=== PATIENT | male | born 1985 | race Hispanic/Latino ===

== ENCOUNTER 2024-05-31 08:21 | Emergency (ER) | payer BC ==
[2024-05-31] MEDS ORDERED: KETOROLAC 30 MG/ML INJ ONE (09:15)
--- NOTE | 2024-05-31 09:53 | RAD REPORT ---
EXAM DESCRIPTION: RAD - Knee Left 3 View - 05/31/2024 9:47 am CLINICAL HISTORY: PAIN COMPARISON: No comparisons FINDINGS: No bone or joint abnormality is seen.
--- NOTE | 2024-05-31 10:33 | EDPHYS ---
Physician Documentation [facility] Name: Chaz Peres Age: 39 yrs Sex: Male : 1985 Arrival Date: 05/31/2024 Time: 08:21 Bed 12 Private MD: ED Physician Jaime Gay HPI: 05/31 10:43 This 39 yrs old Male presents to ER via Ambulatory with complaints of Knee rt Pain. 10:48 Patient presents to the ED with a left knee pain starting yesterday. Patient denies rt trauma. Denies overlying skin changes. Symptoms are mild in severity, aching in nature, nonradiating, no other aggravating or alleviating factors.. Historical: - Allergies: 08:55 No Known Allergies; bp - Home Meds: 08:55 None [Active]; bp - PMHx: 08:55 None; bp - Immunization history:: Adult Immunizations up to date. - Infectious Disease History:: Denies. - Social history:: Smoking status: Patient denies any tobacco usage or history of. - Family history:: not pertinent. ROS: 10:48 Constitutional: Negative for fever, chills, and weight loss, Cardiovascular: Negative rt for chest pain, palpitations, and edema, Respiratory: Negative for shortness of breath, cough, wheezing, and pleuritic chest pain, Abdomen/GI: Negative for abdominal pain, nausea, vomiting, diarrhea, and constipation, Skin: Negative for injury, rash, and discoloration, 10:48 MS/extremity: Positive for pain, Negative for injury or acute deformity, Exam: 10:48 Constitutional: This is a well developed, well nourished patient who is awake, alert, rt and in no acute distress. Head/Face: Normocephalic, atraumatic. Skin: Warm, dry with normal turgor. Normal color with no rashes, no lesions, and no evidence of cellulitis. Neuro: Awake and alert, GCS 15, oriented to person, place, time, and situation. Cranial nerves II-XII grossly intact. Motor strength 5/5 in all extremities. Sensory grossly intact. Cerebellar exam normal. Normal gait. 10:48 Musculoskeletal/extremity: Tenderness medially over the left knee, no overlying skin changes, minimal swelling noted, no joint laxity. Pulses, motor, sensation intact. Vital Signs: 08:53 BP 129 / 80; Pulse 73; Resp 16; Temp 98; Pulse Ox 100% ; bp 10:40 BP 121 / 75; Pulse 71; Resp 15; Temp 97.9; Pulse Ox 100% ; bp MDM: 09:04 Patient medically screened. rt 10:49 Differential Diagnosis Arthritis, knee pain, effusion. Data reviewed: vital signs, rt nurses notes, radiologic studies. Independent interpretation of the following test(s) in the Emergency Department X-Ray: My interpretation is No fracture seen on interpretation of x-ray images. Test considered but Not performed: Labs: No overlying skin changes, no fever, arthrocentesis not indicated. Counseling: I had a detailed discussion with the patient and/or guardian regarding the historical points, exam findings, and any diagnostic results supporting the discharge/admit diagnosis, radiology results, the need for outpatient follow up. 05/31 09:07 Order name: Knee Left 3 View XRAY; Complete Time: 09:54 rt Administered Medications: 09:18 Drug: Ketorolac IM 30 mg IM once Route: IM; Site: right deltoid; bp 10:12 Follow up: Response: No adverse reaction bp Disposition Summary: 05/31/24 10:33 Discharge Ordered Notes: Location: Home rt Problem: new rt Symptoms: have improved rt Condition: Stable rt Diagnosis - Pain in right knee rt Followup: rt - With: Private Physician - When: 5 - 6 days - Reason: Discharge Instructions: - Discharge Summary Sheet rt - Acute Knee Pain, Adult rt Forms: - Medication Reconciliation Form rt - Antibiotic Education rt - Prescription Opioid Use rt - Patient Portal Instructions rt - Leadership Thank You Letter rt Signatures: [facility] Trey Zapata RN RN bp Jaime Gay MD MD rt Corrections: (The following items were deleted from the chart) 10:49 10:48 Patient presents to the ED with a right knee pain starting yesterday. Patient rt denies trauma. Denies overlying skin changes. Symptoms are mild in severity, aching in nature, nonradiating, no other aggravating or alleviating factors.. rt
--- NOTE | 2024-05-31 10:33 | ER ---
Nurse's Notes [facility] Name: Chaz Peres Age: 39 yrs Sex: Male : 1985 Arrival Date: 05/31/2024 Time: 08:21 Bed 12 Private MD: Diagnosis: Pain in right knee Presentation: 05/31 08:53 Chief complaint: Patient states: SPONTANEOUS LEFT KNEE PAIN SINCE YESTERDAY. bp Coronavirus screen: At this time, the client does not indicate any symptoms associated with coronavirus-19. Ebola Screen: No symptoms or risks identified at this time. Initial Sepsis Screen: Does the patient meet any 2 criteria? No. Patient's initial sepsis screen is negative. Does the patient have a suspected source of infection? No. Patient's initial sepsis screen is negative. Risk Assessment: Do you want to hurt yourself or someone else? Patient reports no desire to harm self or others. Onset of symptoms is unknown. 08:53 Method Of Arrival: Ambulatory bp 08:53 Acuity: HERMINIA 5 bp Triage Assessment: 08:55 General: Appears in no apparent distress. uncomfortable, Behavior is appropriate for bp age. Pain: Complains of pain in left knee. Neuro: Gait is steady. Musculoskeletal: Circulation, motion, and sensation intact. Range of motion: intact in all extremities. Injury Description: NONE. Historical: - Allergies: 08:55 No Known Allergies; bp - Home Meds: 08:55 None [Active]; bp - PMHx: 08:55 None; bp - Immunization history:: Adult Immunizations up to date. - Infectious Disease History:: Denies. - Social history:: Smoking status: Patient denies any tobacco usage or history of. - Family history:: not pertinent. Screenin:00 [facility] ED Fall Risk Assessment (Adult) History of falling in the last 3 months, bp including since admission No falls in past 3 months (0 pts) Confusion or Disorientation No (0 pts) Intoxicated or Sedated No (0 pts) Impaired Gait No (0 pts) Mobility Assist Device Used No (0 pt) Altered Elimination No (0 pt) Score/Fall Risk Level 0 - 2 = Low Risk Oriented to surroundings. Abuse screen: Denies threats or abuse. Denies injuries from another. Nutritional screening: No deficits noted. Tuberculosis screening: No symptoms or risk factors identified. Assessment: 09:00 General: SEE TRIAGE NOTE. bp Vital Signs: 08:53 BP 129 / 80; Pulse 73; Resp 16; Temp 98; Pulse Ox 100% ; bp 10:40 BP 121 / 75; Pulse 71; Resp 15; Temp 97.9; Pulse Ox 100% ; bp ED Course: 08:24 Patient arrived in ED. [email or web address] 08:30 Jaime Gay MD is Attending Physician. rt 08:53 Trey Nova, RN is Primary Nurse. bp 08:55 Triage completed. bp 08:55 Arm band placed on. bp 09:49 Knee Left 3 View XRAY In Process Unspecified. EDMS 10:40 Patient has correct armband on for positive identification. Provided Education on: N/A. bp 10:40 No provider procedures requiring assistance completed. Patient did not have IV access bp during this emergency room visit. Administered Medications: 09:18 Drug: Ketorolac IM 30 mg IM once Route: IM; Site: right deltoid; bp 10:12 Follow up: Response: No adverse reaction bp Medication: 09:00 VIS not applicable for this client. bp Outcome: 10:33 Discharge ordered by . rt 10:40 Discharged to home ambulatory, bp 10:40 Condition: stable 10:40 Discharge instructions given to patient, Instructed on discharge instructions, follow up and referral plans. Demonstrated understanding of instructions, follow-up care, 10:41 Patient left the ED. bp Signatures: Dispatcher [employer] EDMD Trey Nova, RN RN bp Nay Sommer [email or web address] Jaime Gay MD MD rt
[2024-05-31 10:50] VITALS: O2SAT 100
[2024-05-31 10:52] VITALS: BP 121/75; TEMP 97.9
== END 2024-05-31 10:41 | disposition home or self-care (01) ==
LOC: ER 08:21
DX: M25.561 Pain in right knee (principal); M25.562 Pain in left knee
CPT/HCPCS: 96372; 99284